=== PATIENT | male | born 1995 | race Caucasian/White ===

== ENCOUNTER 2019-07-26 21:45 | Emergency (ER) | payer SELFPAY, OTHER ==
[2019-07-26] MEDS: CYCLOBENZAPRINE 10 MG TAB PO (23:09)
[2019-07-26] MEDS: IBUPROFEN 800 MG TAB PO (23:09)
== END 2019-07-26 23:39 | disposition home or self-care (01) ==
LOC: FTE 21:45
DX: M25.531 Pain in right wrist (principal); M54.5 Low back pain; V44.5XXA Car driver injured in collision with heavy transport vehicle or bus in traffic accident, initial encounter
CPT/HCPCS: 99283

== ENCOUNTER → 2019-08-05 | Emergency (ER) | payer SELFPAY | END | disposition left against medical advice (07) | LOC: FTE 00:50 | DX: Z53.21 Procedure and treatment not carried out due to patient leaving prior to being seen by health care provider (principal) ==

== ENCOUNTER → 2019-08-05 | Emergency (ER) | payer SELFPAY | END | disposition left against medical advice (07) | LOC: FTE 02:32 | DX: Z53.21 Procedure and treatment not carried out due to patient leaving prior to being seen by health care provider (principal) ==